=== PATIENT | female | born 1965 | race African-American/Black ===

== ENCOUNTER 2016-11-29 10:03 | Inpatient (IN) | payer OTHER ==
[~2016-11-29] VITALS: Ht 162.6 cm; Wt 77.1 kg
[2016-11-29] MEDS ORDERED: ACETAMINOPHEN 325MG TABLET PO ONE (12:15)
[2016-11-29] MEDS ORDERED: MORPHINE SULFATE 4 MG/ML CPJ (NOT FOR IM USE) IV STA (13:27)
[2016-11-29] MEDS ORDERED: ONDANSETRON HCL 4MG/2ML VIAL IV STA (13:27)
[2016-11-29 14:59] LABS: BASOPHILS % 0.5 % (0.0-2.0); HEMATOCRIT. 35.5 % (36.0-48.0); HEMOGLOBIN. 11.7 g/dL (12.0-16.0); LYMPHOCYTES % 14.7 % (20.0-50.0); MEAN CORPUSCULAR HEMOGLOBIN 28.3 pg (28.0-32.0); MEAN CORPUSCULAR VOLUME 85.7 fL (81.0-99.0); MEAN PLATELET VOLUME 7.4 fl (7.4-10.4); MONOCYTES % 2.7 % (2.0-8.0); NEUTROPHILS % 82.1 % (40.0-76.0); PLATELET 309 x1000/uL (130-400); RED BLOOD CELL COUNT 4.14 mill/uL (4.2-5.4); RED CELL DISTRIBUTION WIDTH 15.2 % (11.6-14.6)
[2016-11-29 15:06] LABS: CHLORIDE 110 mEq/L (98-107)
[2016-11-29 15:10] LABS: CARBON DIOXIDE 26 mEq/L (21-32)
[2016-11-29] MEDS ORDERED: SODIUM CHLORIDE 0.9% 1,000 ML IV ONE (15:20)
[2016-11-29] MEDS ORDERED: ETOMIDATE 2MG/ML 10ML VIAL IV ONE (15:30)
[2016-11-29] MEDS ORDERED: LORAZEPAM 2MG/ML CPJ IV PRN (19:00)
[2016-11-29] MEDS ORDERED: MAGNESIUM/ALUMINUM HYDROXIDE/SIMETHICONE 30ML UDC PO PRN (19:00)
[2016-11-29] MEDS ORDERED: DIPHENHYDRAMINE 50MG/ML VIAL IV PRN (19:00)
[2016-11-29] MEDS ORDERED: ONDANSETRON HCL 4MG/2ML VIAL IV PRN (19:00)
[2016-11-29] MEDS ORDERED: CLONIDINE 0.1MG TABLET PO PRN (19:00)
[2016-11-29] MEDS ORDERED: IPRATROPIUM/ALBUTEROL 0.5-3(2.5)MG/3ML NEB INH PRN (19:00)
[2016-11-29] MEDS ORDERED: ACETAMINOPHEN 325MG TABLET PO PRN (19:00)
[2016-11-29] MEDS ORDERED: DOCUSATE SODIUM 100MG CAPSULE PO PRN (19:00)
[2016-11-29] MEDS ORDERED: NA PHOS,M-B/NA PHOS,DI-BA ENEMA 118ML PR PRN (19:00)
[2016-11-29] MEDS ORDERED: GUAIFENESIN 200MG/10ML SUGAR FREE UDC PO PRN (19:00)
[2016-11-29 19:53] LABS: CARBON DIOXIDE 26 mEq/L (21-32); CHLORIDE 112 mEq/L (98-107)
[2016-11-29] MEDS: HYDROCODONE/ACETAMINOPHEN 10/325MG TABLET PO PRN (20:26)
[2016-11-29 22:30] VITALS: BP 116/75
[2016-11-29] MEDS: ENOXAPARIN 40MG/0.4ML SYR SUBCUT SCH (23:10)
[2016-11-30] VITALS (7 sets, daily range): BP systolic 110–131; BP diastolic 60–86
[2016-11-30] MEDS: HYDROCODONE/ACETAMINOPHEN 10/325MG TABLET PO PRN ×3 (02:51→20:32)
[2016-11-30 04:59] LABS: CARBON DIOXIDE 26 mEq/L (21-32); CHLORIDE 109 mEq/L (98-107)
[2016-11-30 05:34] LABS: BASOPHILS % 0.4 % (0.0-2.0); EOSINOPHILS % 0.8 % (0.0-5.0); HEMATOCRIT. 32.2 % (36.0-48.0); HEMOGLOBIN. 10.5 g/dL (12.0-16.0); LYMPHOCYTES % 35.8 % (20.0-50.0); MEAN CORPUSCULAR HEMOGLOBIN 28.2 pg (28.0-32.0); MEAN CORPUSCULAR VOLUME 86.7 fL (81.0-99.0); MEAN PLATELET VOLUME 7.9 fl (7.4-10.4); MONOCYTES % 7.4 % (2.0-8.0); NEUTROPHILS % 55.6 % (40.0-76.0); PLATELET 286 x1000/uL (130-400); RED BLOOD CELL COUNT 3.71 mill/uL (4.2-5.4)
[2016-11-30] MEDS: ENOXAPARIN 40MG/0.4ML SYR SUBCUT SCH (20:33)
[2016-12-01] VITALS: BP 129/83
[2016-12-01 04:00] VITALS: BP 153/82
[2016-12-01] MEDS: HYDROMORPHONE HCL/PF 2MG/ML CPJ IV PRN ×3 (04:38→11:27)
[2016-12-01 08:00] VITALS: BP 116/74
[2016-12-01] MEDS ORDERED: VANCOMYCIN HCL 500 MG/VIAL ONE ×2 (09:07→10:14)
[2016-12-01] MEDS ORDERED: BUPIVACAINE/EPINEPH/PF 0.25%/0.0005 10ML ONE (09:07)
[2016-12-01] MEDS ORDERED: LABETALOL HCL 20MG/4ML CARPUJECT IV PRN ×2 (09:30)
[2016-12-01] MEDS ORDERED: ONDANSETRON HCL 4MG/2ML VIAL IV PRN ×3 (09:30→10:45)
[2016-12-01] MEDS ORDERED: MEPERIDINE HCL/PF 25MG/ML CPJ IV PRN ×2 (09:30)
[2016-12-01] MEDS ORDERED: HYDROMORPHONE HCL/PF 2MG/ML CPJ IV PRN (09:30)
[2016-12-01] MEDS ORDERED: FENTANYL CITRATE/PF 50MCG/ML 2ML VIAL ONE (09:50)
[2016-12-01] MEDS ORDERED: MIDAZOLAM HCL 2 MG/2 ML VIAL ONE (09:54)
[2016-12-01] MEDS ORDERED: SODIUM CHLORIDE 0.9% 10ML VIAL ONE (10:02)
[2016-12-01] MEDS ORDERED: LIDOCAINE HCL 1% 20ML VIAL (Pyxis) INJ ONE (10:02)
[2016-12-01] MEDS ORDERED: CEFAZOLIN SODIUM 1000MG/VIAL ONE (10:02)
[2016-12-01] MEDS ORDERED: PROPOFOL 200MG/20ML VIAL IV ONE (10:02)
[2016-12-01] MEDS ORDERED: DEXAMETHASONE 4MG/ML 1ML VIAL ONE (10:02)
[2016-12-01] MEDS ORDERED: HYDROMORPHONE HCL/PF 2MG/ML (OR) ONE (10:04)
[2016-12-01] MEDS ORDERED: BACITRACIN ZINC 15GM TUBE TOP ONE (10:28)
[2016-12-01] MEDS ORDERED: HYDROCODONE/ACETAMINOPHEN 5/325MG TABLET PO PRN (10:45)
[2016-12-01] MEDS: CEFAZOLIN 1000MG PREMIX 50 ML IV SCH ×2 (13:58→21:40)
[2016-12-01 16:00] VITALS: BP 120/71
[2016-12-01 20:00] VITALS: BP 134/94
[2016-12-01] MEDS: ENOXAPARIN 40MG/0.4ML SYR SUBCUT SCH (21:41)
[2016-12-02] VITALS: BP 139/88
[2016-12-02] MEDS: HYDROCODONE/ACETAMINOPHEN 10/325MG TABLET PO PRN ×3 (00:10→15:01)
[2016-12-02 04:04] VITALS: BP 134/87
[2016-12-02] MEDS: HYDROMORPHONE HCL/PF 2MG/ML CPJ IV PRN (04:04)
[2016-12-02] MEDS: CEFAZOLIN 1000MG PREMIX 50 ML IV SCH ×2 (05:17→13:01)
[2016-12-02 08:00] VITALS: BP 111/89
[2016-12-02 12:00] VITALS: BP 137/92
[2016-12-02 15:08] VITALS: BP 111/89
[2016-12-02 16:00] VITALS: BP 135/83
== END 2016-12-02 16:37 | disposition home or self-care (01) | DRG 313 ==
LOC: ER 13:01 → 6EST 16:30
PROVIDERS: ADMIT Internal Medicine; ATTEND Internal Medicine
PROC: 2W3QX1Z Immobilization of Right Lower Leg using Splint (ICD-10-PCS; 2016-11-29)
PROC: 0QSGXZZ Reposition Right Tibia, External Approach (ICD-10-PCS; 2016-11-29)
PROC: 0QSJ04Z Reposition Right Fibula with Internal Fixation Device, Open Approach (ICD-10-PCS; 2016-12-01)
PROC: BQ1G1ZZ Fluoroscopy of Right Ankle using Low Osmolar Contrast (ICD-10-PCS; 2016-12-01)
PROC: 0QSG04Z Reposition Right Tibia with Internal Fixation Device, Open Approach (ICD-10-PCS; principal; 2016-12-01 09:30)
DX: S82.851A Displaced trimalleolar fracture of right lower leg, initial encounter for closed fracture (principal); E86.0 Dehydration; S92.352A Displaced fracture of fifth metatarsal bone, left foot, initial encounter for closed fracture; R00.0 Tachycardia, unspecified; K59.00 Constipation, unspecified; F41.9 Anxiety disorder, unspecified; W18.39XA Other fall on same level, initial encounter; Y93.89 Activity, other specified; Y92.89 Other specified places as the place of occurrence of the external cause; Y99.8 Other external cause status
CPT/HCPCS: 27840; 36415; 71010; 73610; 73620; 73630; 80048; 80053; 85025; 93005; 96361; 96374; 96375; 97116; 97162; 99152; 99285; A4216; C1713; J0171; J0690; J1100; J1170; J1650; J2250; J2270; J2405; J2704; J3010; J3370; J3490; J7030; Q4051